=== PATIENT | female | born 1955 | race Caucasian/White ===

== ENCOUNTER 2018-05-09 07:51 | Emergency (ER) | payer BC, OTHER, MEDICARE ==
[2018-05-09] MEDS: HYDROcodone/APAP 5/325MG 1 TAB TABLET PO (08:26)
[2018-05-09] MEDS: ONDANSETRON ODT 4 MG TAB.RAPDIS. PO (08:27)
== END 2018-05-09 09:31 | disposition home or self-care (01) ==
LOC: ER 07:51
DX: S62.102A Fracture of unspecified carpal bone, left wrist, initial encounter for closed fracture (principal); E78.00 Pure hypercholesterolemia, unspecified; I10 Essential (primary) hypertension; E03.9 Hypothyroidism, unspecified; E11.9 Type 2 diabetes mellitus without complications; F41.9 Anxiety disorder, unspecified; Z88.2 Allergy status to sulfonamides; Z88.8 Allergy status to other drugs, medicaments and biological substances; W01.0XXA Fall on same level from slipping, tripping and stumbling without subsequent striking against object, initial encounter; Y93.89 Activity, other specified; Y92.89 Other specified places as the place of occurrence of the external cause; Y99.8 Other external cause status
CPT/HCPCS: 29125; 73080; 73110; 73130; 99284; Q0162

== ENCOUNTER → 2019-02-07 | Outpatient (CLI) | payer BC ==
[2018-05-09 09:31] VITALS: BP 138/69
[~2019-02-07] MED LIST: AMLO10TA8 PO; ASPI325T8 PO; FERR325T14 PO; HYDR-3164 PO; HYDR28GE TP; HYDR2TAB31 PO; LEVO175T5 PO; LEVO750T5 PO; LOSA-73 PO; LOVA20TA2 PO; METF10007 PO; METO100T7 PO; PARO20TA3 PO
--- NOTE | 2019-02-07 13:19 | RAD ---
Left lower extremity bone length study, 02/07/2019: HISTORY: Preop planning for knee surgery AP views of the left femur and lower leg were obtained with markers placed on the skin surface laterally as requested to aid in measurements for surgical planning. There is severe narrowing of the medial compartment of left knee joint with subchondral sclerosis and moderate marginal spurring. Arterial calcifications are present. No other abnormality is identified on this limited exam. Electronically signed by: Oscar Vallejo MD (02/07/2019 1:16 PM) [facility]
--- NOTE | 2019-02-07 14:30 | RAD ---
Examination: MRI left knee without contrast using Stoll & Nephew protocol HISTORY: Left knee pain COMPARISON: None available TECHNIQUE: MRI of the left knee was performed using identified. FINDINGS: The anterior cruciate ligament, posterior cruciate ligament appear intact. There is attenuated appearance of the body of the medial meniscus with blunting of the posterior horn of the medial meniscus probably degeneration. Evaluation is limited as only limited views of the knee was performed per stoll and nephew protocol. The medial and lateral retinaculum appear intact. Moderate knee joint effusion. Severe tricompartmental degenerative changes with moderate size osteophyte formation identified in the medial, lateral, patellofemoral compartments. Extensor mechanism is intact. Soft tissue edema identified anterior to the knee joint. IMPRESSION: 1. Severe tricompartmental degenerative changes. 2. Small knee joint effusion. Electronically signed by: Israel Jones MD (02/07/2019 2:27 PM) [id number]
== END | disposition home or self-care (01) ==
LOC: RAD 12:29
PROVIDERS: ATTEND Orthopaedic Surgery
DX: M17.12 Unilateral primary osteoarthritis, left knee (principal); M25.462 Effusion, left knee; M25.762 Osteophyte, left knee; I70.202 Unspecified atherosclerosis of native arteries of extremities, left leg
CPT/HCPCS: 73721; 77073

== ENCOUNTER → 2019-02-17 | Outpatient (CLI) | payer BC ==
[2018-05-09 09:31] VITALS: BP 138/69
[2019-02-17 09:30] LABS: BASO # 0.1 x10^3/uL (0.0-0.2); BASO % 1 % (0-3); EOS # 0.1 x10^3/uL (0.0-0.7); EOS % 2 % (0-3); HEMATOCRIT 36.8 % (36.0-47.0); HEMOGLOBIN 11.7 g/dL (12.0-15.5); LYMPH # 1.6 x10^3/uL (1.0-4.8); LYMPH % 27 % (24-48); MEAN CORPUSCULAR HEMOGLOBIN 26 pg (25-35); MEAN CORPUSCULAR HGB CONC 32 g/dL (31-37); MEAN CORPUSCULAR VOLUME 82 fL (79-100); MONO # 0.8 x10^3/uL (0.0-1.1); MONO % 14 % (0-9); NEUT # 3.2 x10^3uL (1.8-7.7); NEUT % 56 % (31-73); PLATELET COUNT 187 x10^3/uL (140-400); RED BLOOD COUNT 4.48 x10^6/uL (3.50-5.40); RED CELL DISTRIBUTION WIDTH 15.6 % (11.5-14.5); WHITE BLOOD COUNT 5.8 x10^3/uL (4.0-11.0)
[2019-02-17 09:35] LABS: PROTHROMBIN TIME PATIENT 12.9 SEC (11.7-14.0)
[2019-02-17 10:13] LABS: BILIRUBIN,URINE NEGATIVE (NEG); CLARITY,URINE CLEAR; COLOR,URINE YELLOW; NITRITE,URINE POSITIVE (NEG); PH,URINE 5.5; PROTEIN,URINE 30 mg/dL (NEG-TRACE); UROBILINOGEN,URINE 0.2 mg/dL (0.2 mg/dL)
[2019-02-17 10:19] LABS: BACTERIA,URINE MANY /HPF (0-FEW); SQUAMOUS EPITHELIAL CELL,UR MANY /LPF; WBC,URINE 20-40 /HPF (0-4)
[2019-02-17 10:20] LABS: RBC,URINE OCC /HPF (0-2)
[2019-02-17 10:26] LABS: ALBUMIN 3.8 g/dL (3.4-5.0); CALCIUM 9.3 mg/dL (8.5-10.1); CREATININE 0.8 mg/dL (0.6-1.0); GFR 72.2; POTASSIUM 4.6 mmol/L (3.5-5.1)
--- NOTE | 2019-02-17 13:17 | EKG ---
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
--- NOTE | 2019-02-17 14:39 | RAD ---
AP and Lateral Views of the Chest 02/17/2019 2:05 PM Indication: PRE-OP CHEST, KNEE SURGERY Comparison: Chest radiograph July 28, 2013 Findings: Calcified granuloma in the right lower lobe is stable. There is no focal consolidation or infiltrate identified. The cardiomediastinal silhouette is within normal limits. There is no evidence of pneumothorax or pleural effusion. No acute osseous abnormalities are identified. Impression: No evidence of acute cardiopulmonary process. Electronically signed by: Nathaniel Munoz MD (02/17/2019 2:36 PM) [facility]
[2019-02-17 23:08] LABS: HEMOGLOBIN A1C 6.6 % (4.8-5.6)
--- NOTE | 2019-02-21 10:18 | NUR ---
FAXED URINE CULTURE [place] [address]/21/2019 [place] [address]/21/2019AND [place] [address]/21/2019 AND ALSO LEFT A MESSAGE AT 09.
--- NOTE | 2019-03-06 18:27 | NUR ---
PATIENT WAS TREATED WITH MACROBID 100 MG.X 7 DAYS PCP - ANA MANZANARES APRN OFFICE CALLED PATIENT 2018. UA,C&S IF INDICATED REPEATED 03/04/2019 AND REPORT STILL ABNORMAL AND FAXED TO 'S OFFICE03/04/2019 AT 1058 AND ALSO CALLED JUDY EUCEDA 03/04/2019 AND HE IS GOING TO CHECK WITH . 03/06/2019 AT 1030 JUDY EUCEDA OF CALLED HE WILL CALL PATIENT TODAY AND SAID SURGEON WANTS TO REPEAT UA DAY OF SURGERY.
--- NOTE | 2019-03-07 13:29 | NUR ---
PATIENT IS TO START TAKING LEVOFLOXACIN 500 MG. DAILY UNTIL SURGERY PER AND OK KIM CALLED PATIENT 03/07/2019 OK CALLED AT AROUND 0830.
== END | disposition home or self-care (01) ==
LOC: SURGPAT 13:59
PROVIDERS: ATTEND Orthopaedic Surgery
DX: M17.12 Unilateral primary osteoarthritis, left knee (principal); I10 Essential (primary) hypertension; J84.10 Pulmonary fibrosis, unspecified; Z88.8 Allergy status to other drugs, medicaments and biological substances
CPT/HCPCS: 36415; 71046; 80048; 81001; 82040; 82306; 83036; 84134; 84466; 85025; 85610; 85730; 87086; 87186; 87641; 93005

== ENCOUNTER → 2019-03-04 | Outpatient (CLI) | payer BC ==
[2018-05-09 09:31] VITALS: BP 138/69
[2019-03-04 09:29] LABS: BILIRUBIN,URINE NEGATIVE (NEG); CLARITY,URINE CLEAR; COLOR,URINE YELLOW; NITRITE,URINE POSITIVE (NEG); PH,URINE 5.5; PROTEIN,URINE NEGATIVE (NEG-TRACE); UROBILINOGEN,URINE 0.2 mg/dL (0.2 mg/dL)
[2019-03-04 09:38] LABS: WBC,URINE 20-40 /HPF (0-4)
[2019-03-04 09:39] LABS: BACTERIA,URINE MANY /HPF (0-FEW); SQUAMOUS EPITHELIAL CELL,UR FEW /LPF
== END | disposition home or self-care (01) ==
LOC: LAB 08:48
PROVIDERS: ATTEND Orthopaedic Surgery
DX: N39.0 Urinary tract infection, site not specified (principal)
CPT/HCPCS: 81001; 87086; 87186

== ENCOUNTER 2019-03-11 06:40 | Inpatient (IN) | payer BC ==
--- NOTE | 2019-03-10 17:57 | PDOC1 ---
History and Physical Date of Admission Date of Admission 03/11/2019 Identification/Chief Complaint Chief Complaint left knee pain Source Source: Chart review History of Present Illness History of Present Illness 63-year-old woman with long-standing knee arthritis. The left knee interferes with her day-to-day activity, at times causes her to cry in pain. She takes N SAIDs, Etodolac for arthritis pain, but it's not working well enough. Her twin sister has had both knees replaced, when the twin was still in her 50s. Caio has held out longer but feels that she needs to have this left knee replaced because of the severe interference with her day-to-day activities. She has some other issues which will affect knee replacement surgery. She has a history of gastric bypass surgery x2, and had complications. She had hernia surgery first without mesh, and another hernia surgery with mesh. She had heel bone surgery which became infected. She does have some neuropathy, some loss of sensation in the feet, and some itching in the feet. She has multiple allergies. She denies a nickel or metal allergy. Her PCP is Caio Benjamin, and she sees her every 6 months. Recent A1c was 6.2. She denies any prior left knee surgery. The right knee bothers her but not as much as the left. 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 Past Medical History Past Medical History Hypertension. Hyperlipidemia. Diabetes Mellitus type 2. Hypothyroidism. Anxiety. Cardiovascular: HTN, Hyperlipidemia Psych: Anxiety Endocrine: Diabetes, Hypothyroidism Past Surgical History Past Surgical History Hernia Repair by Dr. Beal Gastric Bypass 1978 Bone spur removal from right foot broke wrist april 2018 Past Surgical History: Hernia Repair Current Medications Current Medications Current Medications Ondansetron HCl (Zofran) 4 mg PRN Q6HRS PRN IV NAUSEA/VOMITING; Start 03/11/19 at 07:00; Stop 03/12/19 at 06:59 Fentanyl Citrate (Fentanyl 2ml Vial) 25 mcg PRN Q5MIN PRN IV MILD PAIN; Start 03/11/19 at 07:00; Stop 03/12/19 at 06:59 Fentanyl Citrate (Fentanyl 2ml Vial) 50 mcg PRN Q5MIN PRN IV MODERATE TO SEVERE PAIN; Start 03/11/19 at 07:00; Stop 03/12/19 at 06:59 Ringer's Solution 1,000 ml @ 30 mls/hr Q24H IV ; Start 03/11/19 at 07:00; Stop 03/11/19 at 18:59 Lidocaine HCl (Xylocaine-Mpf 1% 2ml Vial) 2 ml PRN 1X PRN ID IV START; Start 03/11/19 at 07:00; Stop 03/12/19 at 06:59 Prochlorperazine Edisylate (Compazine) 5 mg PACU PRN PRN IV NAUSEA, MRX1; Start 03/11/19 at 07:00; Stop 03/12/19 at 06:59 Morphine Sulfate 5 mg/Ketorolac Tromethamine 30 mg/Ropivacaine 60 ml/Epinephrine HCl 0.5 mg/Sodium Chloride 100 ml @ 100 mls/hr 1X ONCE INT ART ; Start 03/11/19 at 06:00; Stop 03/11/19 at 06:59 Active Scripts Active [place] 5-325 Tablet (Acetaminophen/Hydrocodone Bitart) 1 Each Tablet 1 Tab PO BID 4 Days Reported Losartan Potassium 50 Mg Tablet 50 Mg PO DAILY Metoprolol Tartrate 100 Mg Tablet 100 Mg PO BID Lovastatin 20 Mg Tablet 20 Mg PO HS Levothyroxine Sodium 175 Mcg Tablet 175 Mcg PO DAILYAC Paroxetine Hcl 20 Mg Tablet 20 Mg PO DAILY Amlodipine Besylate 10 Mg Tablet 10 Mg PO DAILY Metformin Hcl 1,000 Mg Tablet 1,000 Mg PO BIDWMEALS Aspirin 325 Mg Tablet 325 Mg PO BID Ferrous Sulfate 325 Mg Tablet 325 Mg PO DAILY Cortizone 10 (Hydrocortisone) 28 Gm Gel..gram. 28 Gm TP PRN DAILY PRN Allergies Allergies: Coded Allergies: ANA Inhibitors (Verified Allergy, Severe, SWELLING, 05/09/18) Sulfa (Sulfonamide Antibiotics) (Verified Allergy, Intermediate, RASH, 05/09/18) hydrocodone (Verified Adverse Reaction, Intermediate, Itching, 02/19/19) ROS Review of System CONSTITUTIONAL: Fever denies. Chills denies. Weight gain denies. Weakness none. weight loss denies. Fatigue none. OPHTHALMOLOGY: Blurred vision none. Double vision denies. Change in vision none. ENT: Hearing loss none. Change in voice denies. Rhinorrhea none. CARDIOLOGY: Palpitations none. Shortness of breath denies. Chest pain denies. GASTROENTEROLOGY: Diarrhea denies. Vomiting none. Dysphagia none. UROLOGY: Voiding normally yes. Hematuria none. MUSCULOSKELETAL: Chronic back or neck pain Right. Swelling of the feet, hands, ankles and /or legs denies. Joint pain Left wrist fracture, recently healed. She has developed popping at the left thumb interphalangeal joint, since the fracture. DERMATOLOGY: Rash denies. Lumps none. NEUROLOGY: Dizziness/lightheadedness denies. Double vision, temporary blindness denies. Tingling/numbness none. PSYCHOLOGY: Change in mood or personality denies. Memory loss none. ENDOCRINOLOGY: Obesity denies. Fatigue none. Weight loss none. HEMATOLOGY/LYMPH: Hepatitis denies. Enlarged lymph nodes denies. Physical Exam General: Alert, Cooperative HEENT: Atraumatic Lungs: Normal air movement Heart: RRR Abdomen: Soft Extremities: No clubbing, No cyanosis, No edema, Other (The LEFT knee shows a mildly antalgic gait. There is varus alignment. No masses. No detectable effusion. Tenderness on the joint lines. Range of motion is 5-115 degrees. There is crepitus with range of motion, and pain at the extremes of motion. The knee is stable to varus and valgus stress without subluxation or laxity. Muscle strength is slightly weak for the quadriceps 4+/5 which may be due to pain or avoidance, and does not seem neurogenic, and the muscle tone and bulk is slightly decreased. The hamstring strength is 5/5. The skin is normal with no scars, rashes, lesions or ulcers. Light touch sensation is slightly decreased. No edema and no varicosities. Dorsalis pedis pulse is intact and capillary refill is normal. ) Skin: No rashes, No breakdown, No significant lesion Neuro: Normal speech, Sensation intact Images Images Report reviewed, images independently reviewed. Severe osteoarthritis of the left knee with tibiofemoral subluxation, multiple compartment osteophytes, [id number] contact medially, varus malalignment. [facility] [address] [place], [place] [id number] IMAGING REPORT Signed PATIENT: CAIO SHAFER ACCOUNT: [id number] : 1955 LOCATION: [facility] AGE: 63 SEX: F EXAM STATUS: REG CLI ORD. PHYSICIAN: ARMANDO GUTIERREZ MD REASON: PROCEDURE: KNEE LEFT 3V AP view of bilateral knees, 2 additional views left knee 01/30/2019 9:07 AM Indication: left knee pain for a long time, no known injury Comparison: None Findings: Right knee demonstrates no fracture or dislocation. Minimal medial compartment narrowing appears be present on frontal view. No fracture or dislocation is identified on the left. There is severe medial compartment narrowing with medial and lateral compartmental osteophytosis. The lateral patellofemoral joint also demonstrates significant osteophytosis. Minimal medial translation of the femur aspect of the tibia noted. No acute soft tissue changes are seen. IMPRESSION: Severe degenerative changes of the left knee as described Electronically signed by: Nathaniel Denson MD (01/30/2019 11:26 AM) [facility] DICTATED and SIGNED BY: NATHANIEL DENSON MD DATE: 01/30/191125 VTE Prophylaxis Ordered VTE Prophylaxis Devices: Yes VTE Pharmacological Prophylaxi: Yes Assessment/Plan Assessment/Plan She has severe osteoarthritis of the left knee with [id number]-[id number] contact. She has had weight loss surgery and lost weight, and has tried NSAIDs for the knee arthritis pain. The pain interferes with her activity on a day-to-day basis. Her BMI is 38.8. At 63 years old, and with rhuh-vh-nqwn arthritis medially, the only surgery I would recommend is knee replacement surgery. Unfortunately she is higher risk than the average patient, due to the malabsorption syndrome, and there is evidence of her risk of complications, since she has had multiple prior surgical complications. She had the heel surgery which became infected. She had hernia surgery which failed. She had complications with gastric bypass surgery. We discussed the potential risks of infection, neurovascular injury, bleeding, blood clots, need for revision surgery, or other potential surgical or anesthetic complications. I will want to check her nutrition status preoperatively and I recommended she begin taking Glucerna daily immediately. She does not have any nickel sensitivity but does have multiple other allergies. I recommend the [employer] patient-matched cutting blocks which should decrease the surgical exposure, decrease the bleeding, shorten the surgical time, all of which will help decrease the risk of infection or other postoperative complications. we will request medical clearance from her primary care physician Caio Benjamin. All of her questions about left total knee arthroplasty were answered and she desires to proceed. ARMANDO GUTIERREZ MD Mar 10, 2019 17:57
[2019-03-11] VITALS (8 sets, daily range): BP systolic 96–136; BP diastolic 57–71
[~2019-03-11] VITALS: Ht 157.5 cm; Wt 96.2 kg
[~2019-03-11 06:40] MED LIST changes: -HYDR2TAB31 PO; +HYDROcodone/APAP 7.5/325MG 1 TAB TABLET PO PRN; -LEVO750T5 PO; +MELOXICAM 7.5 MG TABLET PO PRN; +MORPHINE SULFATE 5 MG, KETOROLAC 30MG VIAL 30 MG, ROPIVacaine 0.5% PF 60 ML, EPINEPHrin... INT ART ONE; +TRANEXAMIC ACID 1,000 MG in IV NS 50ML -- 1ST BAG INJ ONE
[2019-03-11] MEDS ORDERED: fentaNYL PF VIAL 100 MCG/2 ML VIAL IV PRN ×3 (07:00→12:15)
[2019-03-11] MEDS ORDERED: LIDOCAINE 1% PF 2 ML VIAL. ID PRN (07:00)
[2019-03-11] MEDS ORDERED: PROCHLORPERAZINE 10 MG/2 ML VIAL. IV PRN (07:00)
[2019-03-11] MEDS ORDERED: ONDANSETRON PF 4 MG/2 ML VIAL. IV PRN (07:00)
[2019-03-11] MEDS ORDERED: IV RINGERS,LACTATED 1000ML 1,000 ML IV SCH (07:00)
[2019-03-11 07:15] LABS: BILIRUBIN,URINE NEGATIVE (NEG); CLARITY,URINE CLEAR; COLOR,URINE YELLOW; NITRITE,URINE NEGATIVE (NEG); PH,URINE 5.5; PROTEIN,URINE 30 mg/dL (NEG-TRACE); UROBILINOGEN,URINE 0.2 mg/dL (0.2 mg/dL)
[2019-03-11 07:24] LABS: SQUAMOUS EPITHELIAL CELL,UR MOD /LPF
[2019-03-11 07:28] LABS: BACTERIA,URINE FEW /HPF (0-FEW)
[2019-03-11 07:29] LABS: RBC,URINE 0 /HPF (0-2)
[2019-03-11] MEDS ORDERED: ACETAMINOPHEN 500 MG TABLET PO ONE (07:30)
[2019-03-11] MEDS ORDERED: TOBRAMYCIN POWDER 1.2 GM VIAL. ONE (07:30)
[2019-03-11] MEDS ORDERED: VANCOMYCIN 1 GM VIAL. ONE ×3 (07:30→08:55)
[2019-03-11] MEDS ORDERED: LEVO750T5 PO (07:32)
[2019-03-11] MEDS ORDERED: cefTRIAXone IV Push 1 GM VIAL. IVP PRN (07:45)
[2019-03-11] MEDS ORDERED: TRANEXAMIC ACID 1,000 MG in IV NS 50ML -- 2ND BAG INJ ONE (08:00)
[2019-03-11] MEDS ORDERED: cefTRIAXone IV Push 1 GM VIAL. IVP ONE (08:00)
[2019-03-11] MEDS ORDERED: PROPOFOL 20 ML IV ONE (09:19)
[2019-03-11] MEDS ORDERED: LIDOCAINE 2% PF 5 ML VIAL. ONE (09:19)
[2019-03-11] MEDS ORDERED: DEXAMETHASONE SOD PHOS 20 MG/5 ML VIAL. ONE (09:19)
[2019-03-11] MEDS ORDERED: DEXAMETHASONE SOD PHOS 4 MG/ML VIAL ONE (09:20)
[2019-03-11] MEDS ORDERED: ONDANSETRON PF 4 MG/2 ML VIAL. ONE (10:06)
[2019-03-11] MEDS ORDERED: fentaNYL PF VIAL 100 MCG/2 ML VIAL ONE (10:06)
[2019-03-11] MEDS ORDERED: ePHEDrine PF IN SALINE 50 MG/10 ML SYRINGE. IV ONE (10:10)
[2019-03-11] MEDS ORDERED: GLYCOPYRROLATE 1 MG/5 ML VIAL. ONE (10:26)
[2019-03-11] MEDS ORDERED: SEVOFLURANE 61 TO 120 MINUTES. IH ONE (11:35)
[2019-03-11] MEDS ORDERED: IV NORMAL SALINE 1000ML BAG 1,000 ML IV SCH (12:11)
--- NOTE | 2019-03-11 12:11 | PDOC4 ---
Operative Note Operative Note Date of Procedure: March 11, 2019 Pre-Op Diagnosis: Unilateral primary osteoarthritis, left knee. M17.12 Post-Op Diagnosis: same Procedure: left total knee arthroplasty with patella resurfacing, CPT 33875 Surgeon: Armando Farias MD Plastic Shaper: IGNACIO Mcneill Anesthesia: General EBL: 100 mL Specimens Obtained: left knee bone and soft tissue Complications: none Implant Company: [employer] Drains: hemovac plus pain catheter Tourniquet time: 53 Minutes Tourniquet Pressure: 350 mm Hg Indications for Procedure: Arthritis pain unrelieved by nonoperative management Findings: Severe osteoarthritis with bone on bone contact medially with full thickness cartilage loss in the patellofemoral and lateral compartments.Aura XM preoperative templating and patient-matched cutting blocks were used. Implants used: Size 5 left bicruciate stabilized Journey II BCS Oxinium femoral component, size 4 left Journey nonporous tibial baseplate, size 3-4 9 mm left Journey II BCS XLPE articular insert, 32 mm oval Karen II resurfacing patellar component. Canchola and Nephew Rally cement to which was added Vancomycin 1 gm and Tobramycin 1.2 gms. Vancomycin additional 1 gm was used topically intr a-wound during closure. Procedure in Detail: The patient was identified in the preoperative holding area, and the correct left lower extremity was marked by me. The patient was taken to the operating room where the patient was anesthetized by the Department of Anesthesia. Preoperative antibiotics were given intravenously. Tranexamic acid 1 g was given intravenously for intraoperative hemostasis. A "time-out" procedure was performed. The patient was positioned supine on the operative table with a tourniquet on the upper left thigh. The left lower limb was thoroughly scrubbed, then sterile surgical prep solution was applied, and the limb was draped in sterile fashion. An impervious stockinet and adhesive drape were used such that the skin was entirely covered. An Parker leg disla was used. The operating team wore personal exhaust-ventilated hoods. The limb exsanguinated with an Esmarch bandage, and the tourniquet was inflated. A midline skin incision was made with a scalpel using the patella and tibial tubercle as landmarks. Electrocautery was used for hemostasis. My patient services assistant used rake retractors. A medial parapatellar arthrotomy incision was used with extension into the distal quadriceps tendon. The patella was retracted laterally and Hohmann retractors were now used by my patient services assistant. Excess synovium, the menisci, and the cruciate ligaments were resected sharply. The patella was assessed and excess synovium and osteophytes around the patellar articulation were removed. The patella was measured with a caliper, cut freehand with a saw using caliper measurements, sized, and then drilled for an oval three-pegged patella component. A periarticular multimodal ropivacaine anesthetic injection was used in the suprapatellar pouch and distal quadriceps muscle. A patient-matched cutting block was pinned to the distal femur and a distal femoral cut was made with an oscillating saw. My patient services assistant held Hohmann retractors and an [employer] retractor to protect the medial and lateral collateral ligaments, the patellar tendon, the skin and the other soft tissues. . A 5-in-1 Journey II cutting guide was then applied and pinned to the femur. The posterior, anterior, and all chamfer cuts were made with the oscillating saw. A patient matched cutting guide was pinned to the tibia and rotational alignment and the planned resection thickness assessed. An external alignment suzi was used to verify the planned cut in the varus-valgus plane and regarding posterior slope referencing the tibial tubercle, the tibial shaft, the ankle joint, and the second metatarsal. The upper tibia was cut made with an oscillating saw. My patient services assistant held Hohmann retractors and a posterior cruciate ligament retractor to protect the medial and lateral collateral ligaments, the patellar tendon, the skin, the peroneal nerve and the other soft tissues. The upper tibia size was confirmed with a trial baseplate. The posterior compartment was cleared of osteophytes and loose bodies. The periarticular anesthetic injection was used in the posterior compartment. The box cut for a posterior stabilized component was made. A preliminary reduction was performed with a trial femur, trial tibial baseplate and trial polyethylene. Soft-tissue balancing was now performed, and extension and rotation of the alignments was checked using a guide suzi in the tibial trial and a guide pin in the femur. No additional releases were required. The stability was assessed using different thicknesses of tibial articular surface to find satisfactory stability and good range of motion. The rotation of the tibial component was marked on the upper tibia. Final trial reduction was now performed verifying patella tracking and tibiofemoral stability and alignment. The tibia preparation was completed with a drill, saw, and fin punch at the previously noted rotation. The final implants were verified and opened. Outer gloves were changed by the operating team. The bone cuts were washed thoroughly with the Cain InterPulse device and dried. Two packages of Canchola + Nephew Rally HV bone cement were mixed in powdered form with Vancomycin 1gm and Tobramycin 1.2 gm, and then vacuum-mixed with the monomer, and placed into a cement gun. The cut surfaces of the bone were thoroughly dried with Whitfield-tip suction and with laparotomy sponges for cement interdigitation. The final components were cemented into place. The knee was kept at full extension while the cement hardened, and excess cement was removed. A Betadine lavage was used throughout the surgical exposure, and allowed to sit in contact with the exposed joint surfaces for three minutes while the cement hardened. Tranexamic acid 1 g was redosed intravenously for additional intraoperative hemostasis. The tourniquet was released, and electrocautery was used for hemostasis. A final periarticular anesthetic injection was used for pain relief. A final check of [id number]-[id number] and stability was made, and the polyethylene implant final size was chosen. The polyethylene implant was secured to the tibial baseplate, and the knee was reduced a final time and range of motion and stability was confirmed. Thorough irrigation was used. Hemovac and pain catheter were used. 1 g of vancomycin was used topically intrawound, during closure. The arthrotomy was closed with interrupted [id number]-cv-[id number] #1 PDS suture. The arthrotomy incision was then run with #1 STRATAFIX Symmetric PDS Plus Knotless suture. The subcutaneous tissues were reapproximated initially with 2-0 PDS . Next the subcuticular layer was reapproximated in a running fashion with #3-0 Stratafix suture by my patient services assistant. The skin incision was then covered and reinforced with Acticoat, followed by a ASHLEY single use negative pressure wound therapy dressing Soft roll and an Diogo wrap were applied. Needle and sponge counts were correct. There were no apparent complications. The patient returned to the recovery room in stable condition. ARMANDO FARIAS MD Mar 11, 2019 12:11
[2019-03-11] MEDS ORDERED: DEXTROSE 50% 25 GM / 50ML DISP.SYRIN. IV PRN (12:15)
[2019-03-11] MEDS ORDERED: 0.9 % SODIUM CHLORIDE 10 ML DISP.SYRIN. IV PRN (12:15)
[2019-03-11] MEDS ORDERED: CALCIUM CARBONATE 500 MG TAB.CHEW PO PRN (12:15)
[2019-03-11] MEDS ORDERED: METOCLOPRAMIDE HCL 10 MG/2 ML VIAL. IV PRN (12:15)
[2019-03-11] MEDS ORDERED: MORPHINE SULFATE 4 MG/ML VIAL. IV PRN (12:15)
[2019-03-11] MEDS ORDERED: ZOLPIDEM 5 MG TABLET. PO PRN (12:15)
[2019-03-11] MEDS ORDERED: MORPHINE SULFATE 2 MG/ML VIAL. IV PRN (12:15)
[2019-03-11] MEDS ORDERED: diphenhydrAMINE 50 MG/ML VIAL IV PRN (12:15)
[2019-03-11] MEDS ORDERED: PROCHLORPERAZINE 5 MG TABLET. PO PRN (12:15)
--- NOTE | 2019-03-11 13:04 | RAD ---
EXAM: Left knee, 2 views. HISTORY: Arthroplasty. COMPARISON: None. FINDINGS: 2 views left knee are obtained. There is a left knee arthroplasty. There is surrounding soft tissue gas, joint fluid and a surgical drain due to postoperative imaging. IMPRESSION: Left knee arthroplasty, with surrounding soft tissue changes due to recent surgery. Electronically signed by: Aviva Briones MD (03/11/2019 1:01 PM) [facility]
[2019-03-11] MEDS: fentaNYL PF VIAL 100 MCG/2 ML VIAL IV PRN ×2 (13:21→13:26)
[2019-03-11] MEDS ORDERED: INSULIN LISPRO 100 UNIT/ML 3ML VIAL. SQ ONE (14:00)
--- NOTE | 2019-03-11 14:40 | NUR ---
Arrived to unit by bed from PACU. Drowsy but awakens easily and answers questions appropriately. Left leg elevated on pillow with ice pack. Left knee dressing d/i with ASHLEY, IAC and Hemovac drain. Able to wiggle toes easily, warm to touch and pedal pulses + bilaterally. O2 at 2l per n/c. IVF's intact and infusing. No c/o at this time. Oriented to room and controls. Side rails up x's 2 with call light in reach. Cont. monitor.
[2019-03-11] MEDS ORDERED: HYDROCORTISONE 1% TOPICAL CREAM 30GM TUBE. TP PRN (15:00)
[2019-03-11] MEDS: FERROUS SULFATE 325 MG TABLET. PO SCH (17:08)
[2019-03-11] MEDS: metFORMIN 500 MG TABLET PO SCH (17:08)
[2019-03-11] MEDS: oxyCODONE/APAP 5/325 1 TAB TABLET PO PRN ×2 (17:09→23:09)
[2019-03-11] MEDS: INSULIN LISPRO 300 UNITS/3 ML INSULN.PEN. SQ SCH (17:17)
[2019-03-11] MEDS: KETOROLAC 30MG VIAL 30 MG, BUPIVACAINE MPF 0.25% 20 ML, EPINEPHrine 0.5 MG in TOTAL VOL... INT ART SCH (17:18)
[2019-03-11] MEDS: ONDANSETRON PF 4 MG/2 ML VIAL. IV SCH (18:00)
[2019-03-11] MEDS: ONDANSETRON ODT 4 MG TAB.RAPDIS. PO SCH (18:00)
[2019-03-11] MEDS ORDERED: diphenhydrAMINE HCL 25 MG CAPSULE PO PRN ×2 (18:15→20:15)
--- NOTE | 2019-03-11 20:30 | NUR ---
pt stated when she sit down on the bed she bend her left knee abruptly and she accidentally disconnect the IAC catheter tubing from the IAC filter catheter ,tubing that are exposed covered with sterile dressing and tape it
[2019-03-11] MEDS: ATORVASTATIN CALCIUM 10 MG TABLET. PO SCH (21:13)
[2019-03-11] MEDS: diphenhydrAMINE HCL 25 MG CAPSULE PO PRN (21:13)
[2019-03-11] MEDS: ASPIRIN ENTERIC COATED 325 MG TABLET.DR. PO SCH (21:13)
[2019-03-11] MEDS: METOPROLOL TART IMMED RELEASE 50 MG TABLET. PO SCH (23:08)
[2019-03-12 03:00] VITALS: BP 104/60
[2019-03-12] MEDS: oxyCODONE/APAP 5/325 1 TAB TABLET PO PRN (04:53)
[2019-03-12] MEDS: ONDANSETRON ODT 4 MG TAB.RAPDIS. PO SCH ×3 (06:00→12:00)
[2019-03-12] MEDS: KETOROLAC 30MG VIAL 30 MG, BUPIVACAINE MPF 0.25% 20 ML, EPINEPHrine 0.5 MG in TOTAL VOL... INT ART SCH (06:00)
[2019-03-12] MEDS ORDERED: MAGNESIUM HYDROXIDE 2,400 MG/30 ML ORAL.SUSP. PO PRN (06:00)
[2019-03-12] MEDS: ONDANSETRON PF 4 MG/2 ML VIAL. IV SCH ×3 (06:00→11:59)
[2019-03-12] MEDS: diphenhydrAMINE HCL 25 MG CAPSULE PO PRN (06:28)
[2019-03-12 06:46] VITALS: BP 96/52
[2019-03-12] MEDS: INSULIN LISPRO 300 UNITS/3 ML INSULN.PEN. SQ SCH ×3 (07:26→16:47)
--- NOTE | 2019-03-12 07:45 | PDOC ---
ORTHO PROGRESS NOTES Subjective Patient doing well except for itching.Patient has history of itching with Hydrocodone, and now complaint of itching. Post-op Day: 1 Procedure L TKA Vitals Vital Signs Date Time Temp Pulse Resp B/P (MAP) Pulse Ox O2 Delivery O2 Flow Rate FiO2 03/12/19 06:46 98.2 18 18 96/52 (67) 98 Nasal Cannula 2.0 98.2 Labs Laboratory Tests Test 03/11/19 07:02 03/11/19 07:25 03/11/19 07:51 03/11/19 12:40 Urine Collection Type Unknown Urine Color Yellow Urine Clarity Clear Urine pH 5.5 Urine Specific [place] 1.020 Urine Protein 30 mg/dL (NEG-TRACE) Urine Glucose (UA) Negative mg/dL (NEG) Urine Ketones (Stick) Negative mg/dL (NEG) Urine Blood Negative (NEG) Urine Nitrite Negative (NEG) Urine Bilirubin Negative (NEG) Urine Urobilinogen Dipstick 0.2 mg/dL (0.2 mg/dL) Urine Leukocyte Esterase Small (NEG) Urine RBC 0 /HPF (0-2) Urine WBC 5-10 /HPF (0-4) Urine Squamous Epithelial Cells Mod /LPF Urine Bacteria Few /HPF (0-FEW) Urine Mucus Slight /LPF Erythrocyte Sedimentation Rate 23 (0-25) Glucose (Fingerstick) 148 mg/dL (70-99) 227 mg/dL (70-99) Test 03/11/19 16:36 03/11/19 21:04 03/12/19 06:31 Glucose (Fingerstick) 173 mg/dL (70-99) 142 mg/dL (70-99) 124 mg/dL (70-99) Laboratory Tests Test 03/11/19 07:51 03/11/19 12:40 03/11/19 16:36 03/11/19 21:04 Glucose (Fingerstick) 148 mg/dL (70-99) 227 mg/dL (70-99) 173 mg/dL (70-99) 142 mg/dL (70-99) Test 03/12/19 06:31 Glucose (Fingerstick) 124 mg/dL (70-99) Notes awake and alert Assessment and Plan POD # 1 S/P l TKA motor and sensory intact dressing dry and intact itching concern this morning PT ROBERTA WISE APRN March 12, 2019 07:45
[2019-03-12] MEDS: FERROUS SULFATE 325 MG TABLET. PO SCH ×2 (08:48→16:06)
[2019-03-12] MEDS: MELOXICAM 7.5 MG TABLET PO SCH (08:49)
[2019-03-12] MEDS: MULTIVITAMIN with MINERAL TABLET. PO SCH (08:49)
[2019-03-12] MEDS: metFORMIN 500 MG TABLET PO SCH ×2 (08:49→16:06)
[2019-03-12] MEDS: SENNOSIDES/DOCUSATE 8.6/50MG TABLET. PO SCH (08:49)
[2019-03-12] MEDS: amLODIPine BESYLATE 10 MG TABLET PO SCH (08:49)
[2019-03-12] MEDS: ASPIRIN ENTERIC COATED 325 MG TABLET.DR. PO SCH ×2 (08:49→21:00)
[2019-03-12] MEDS: METOPROLOL TART IMMED RELEASE 50 MG TABLET. PO SCH ×2 (08:51→21:01)
[2019-03-12] MEDS: LOSARTAN POTASSIUM 50 MG TABLET. PO SCH (08:51)
[2019-03-12] MEDS: LEVOTHYROXINE 175 MCG TABLET PO SCH (08:53)
[2019-03-12] MEDS: PARoxetine 20 MG TABLET PO SCH (08:53)
[2019-03-12 10:45] LABS: HEMATOCRIT 31.5 % (36.0-47.0); HEMOGLOBIN 9.9 g/dL (12.0-15.5)
[2019-03-12] MEDS: traMADol 50 MG TABLET PO PRN ×3 (11:59→23:07)
[2019-03-12] MEDS ORDERED: ONDANSETRON ODT 4 MG TAB.RAPDIS. PO PRN (12:00)
[2019-03-12] MEDS ORDERED: ONDANSETRON PF 4 MG/2 ML VIAL. IV PRN (12:00)
--- NOTE | 2019-03-12 13:20 | NUR ---
IAC and Hemovac completely discontinued around 1315. ASHLEY dressing with a moderate amount of old bloody drainage present but still working properly. Foam dressing applied over old IAC and Hemovac site. No complications from removal. Will continue to monitor.
[2019-03-12] MEDS ORDERED: BISACODYL 10 MG SUPP.RECT. PR PRN (16:00)
[2019-03-12] MEDS: HYDROmorphone 2 MG TABLET PO PRN ×2 (16:08→21:03)
[2019-03-12 17:47] VITALS: BP 94/55
[2019-03-12 20:45] VITALS: BP 105/53
[2019-03-12] MEDS: ATORVASTATIN CALCIUM 10 MG TABLET. PO SCH (21:00)
[2019-03-13] MEDS: HYDROmorphone 2 MG TABLET PO PRN ×3 (04:40→17:08)
[2019-03-13 05:22] LABS: HEMATOCRIT 32.3 % (36.0-47.0); HEMOGLOBIN 10.4 g/dL (12.0-15.5)
[2019-03-13 06:18] VITALS: BP 120/69
[2019-03-13] MEDS: ASPIRIN ENTERIC COATED 325 MG TABLET.DR. PO SCH ×2 (08:48→20:53)
[2019-03-13] MEDS: MELOXICAM 7.5 MG TABLET PO SCH (08:48)
[2019-03-13] MEDS: traMADol 50 MG TABLET PO PRN ×2 (08:49→20:55)
[2019-03-13] MEDS: metFORMIN 500 MG TABLET PO SCH ×2 (08:49→17:08)
[2019-03-13] MEDS: PARoxetine 20 MG TABLET PO SCH (08:49)
[2019-03-13] MEDS: MULTIVITAMIN with MINERAL TABLET. PO SCH (08:52)
[2019-03-13] MEDS: FERROUS SULFATE 325 MG TABLET. PO SCH ×2 (08:52→17:08)
[2019-03-13] MEDS: SENNOSIDES/DOCUSATE 8.6/50MG TABLET. PO SCH (08:52)
[2019-03-13] MEDS: LEVOTHYROXINE 175 MCG TABLET PO SCH (08:53)
[2019-03-13] MEDS: METOPROLOL TART IMMED RELEASE 50 MG TABLET. PO SCH ×2 (08:55→20:54)
[2019-03-13] MEDS: LOSARTAN POTASSIUM 50 MG TABLET. PO SCH (09:00)
[2019-03-13] MEDS: INSULIN LISPRO 300 UNITS/3 ML INSULN.PEN. SQ SCH ×3 (09:01→17:13)
[2019-03-13 11:30] VITALS: BP 106/66
[2019-03-13] MEDS: amLODIPine BESYLATE 10 MG TABLET PO SCH (12:46)
--- NOTE | 2019-03-13 13:18 | PDOC ---
PROGRESS NOTES Subjective Subjective Had trouble with pain meds. Lots of itching with Percocet (even after taking Benadryl.) Doing better on Dilaudid and Tramadol. Hasn't been up OOB much due to pain med issues. Objective Vital Signs Vital Signs Date Time Temp Pulse Resp B/P (MAP) Pulse Ox O2 Delivery O2 Flow Rate FiO2 03/13/19 12:46 77 130/66 03/13/19 11:30 98.5 20 95 Room Air 98.5 03/12/19 06:46 2.0 Physical Exam Postop dressing and pain catheter have been removed. Spotty bloody drainage only (and had postop bleeding requiring ASHLEY change). Calf soft and nontender. Good AROM of ankle. Minimal erythema/warmth. Not yet safely ambulating with walker. Requires PT or nursing assistance, and gait belt for safe transition from chair or bed to walker. Labs Laboratory Tests Test 03/11/19 16:36 03/11/19 21:04 03/12/19 06:31 03/12/19 08:35 Glucose (Fingerstick) 173 mg/dL (70-99) 142 mg/dL (70-99) 124 mg/dL (70-99) Hemoglobin 9.9 g/dL (12.0-15.5) Hematocrit 31.5 % (36.0-47.0) Mean Corpuscular Hemoglobin Concent 31 g/dL (31-37) Test 03/12/19 11:53 03/12/19 16:38 03/12/19 20:27 03/13/19 03:40 Glucose (Fingerstick) 113 mg/dL (70-99) 192 mg/dL (70-99) 126 mg/dL (70-99) Hemoglobin 10.4 g/dL (12.0-15.5) Hematocrit 32.3 % (36.0-47.0) Mean Corpuscular Hemoglobin Concent 32 g/dL (31-37) Test 03/13/19 06:28 03/13/19 11:39 Glucose (Fingerstick) 172 mg/dL (70-99) 145 mg/dL (70-99) Laboratory Tests Test 03/12/19 16:38 03/12/19 20:27 03/13/19 03:40 03/13/19 06:28 Glucose (Fingerstick) 192 mg/dL (70-99) 126 mg/dL (70-99) 172 mg/dL (70-99) Hemoglobin 10.4 g/dL (12.0-15.5) Hematocrit 32.3 % (36.0-47.0) Mean Corpuscular Hemoglobin Concent 32 g/dL (31-37) Test 03/13/19 11:39 Glucose (Fingerstick) 145 mg/dL (70-99) Imaging Postoperative x-rays and report reviewed by me and show satisfactory alignment and no apparent complications. Assessment Assessment POD #2 TKA Plan Plan of Care Continue POC. Discharge planning for tomorrow. Aspirin 325 mg po BID and mobilization for DVT prophylaxis. ARMANDO GUTIERREZ MD March 13, 2019 13:18
--- NOTE | 2019-03-13 14:41 | PATHOLOGY ---
[facility] Accession Number: [id number] . 01 Material submitted: . knee - LEFT KNEE BONE AND SOFT TISSUE. Modifiers: left . 01 Clinical history: . Osteoarthritis . 02 Diagnosis: Segments of bone and soft tissue, left total knee arthroplasty: - Advanced degenerative arthritis. - Papillary chronic synovitis. ([facility] 03/13/2019) QTP/03/13/2019 . 02 Electronically signed: . Phuc Medrano MD, Pathologist NPI- [id number] . 01 Gross description: . Received in formalin labeled "Esme Moser, left knee bone and soft tissue ", are multiple segments of bone including apparent tibia plateau, patella, two irregular fragments of meniscus and soft tissue measuring 12.5 x 8.0 x 1.5 cm in aggregate. Several bone segments are partially covered by pitted thomas and granular articular cartilage with areas of eburnation. Osteophyte and hyperplastic synovial tissue are present. Shoe Cutter sections submitted in A1 after decalcification. ([facility]; 03/12/2019) [facility] . 02 Pathologist provided ICD-10: M17.12, M65.9 . 02 CPT . 790266, 970340 Specimen Comment: A courtesy copy of this report has been sent to Specimen Comment: [phone]. Specimen Comment: Report sent to Performed at: 01 [facility] [address], [place] [id number] MD Barry Bernard MD Phone: [phone] Performed at: 02 [facility] [address] [place], [place] [id number] MD Phuc Medrano MD Phone: [phone]
--- NOTE | 2019-03-13 15:46 | NUR ---
Esme is feeling better; better pain control with no increase in itching. tolerated both rehab sessions. still needs assistance with ambulation and transferring. ate lunch fair. ordered supper without problems
[2019-03-13 17:54] VITALS: BP 117/64
[2019-03-13] MEDS: ATORVASTATIN CALCIUM 10 MG TABLET. PO SCH (20:51)
[2019-03-14 06:25] VITALS: BP 133/65
[2019-03-14] MEDS: LEVOTHYROXINE 175 MCG TABLET PO SCH (06:36)
[2019-03-14] MEDS: INSULIN LISPRO 300 UNITS/3 ML INSULN.PEN. SQ SCH ×2 (07:29→12:00)
[2019-03-14 07:42] LABS: HEMOGLOBIN 9.4 g/dL (12.0-15.5)
--- NOTE | 2019-03-14 08:00 | NUR ---
awakens this am; tearful crying stating I want to go Home NOW" explained she could go home but would not have any pain medication. i would call charito and tell him but idid not know when he would be in. after letting her rest and awakens fully she is in a better mood and iss agreeable to staying.
[2019-03-14] MEDS: MELOXICAM 7.5 MG TABLET PO SCH (08:39)
[2019-03-14] MEDS: SENNOSIDES/DOCUSATE 8.6/50MG TABLET. PO SCH (08:40)
[2019-03-14] MEDS: MULTIVITAMIN with MINERAL TABLET. PO SCH (08:40)
[2019-03-14] MEDS: METOPROLOL TART IMMED RELEASE 50 MG TABLET. PO SCH (08:40)
[2019-03-14] MEDS: ASPIRIN ENTERIC COATED 325 MG TABLET.DR. PO SCH (08:40)
[2019-03-14] MEDS: FERROUS SULFATE 325 MG TABLET. PO SCH (08:40)
[2019-03-14] MEDS: amLODIPine BESYLATE 10 MG TABLET PO SCH (08:40)
[2019-03-14] MEDS: metFORMIN 500 MG TABLET PO SCH (08:40)
[2019-03-14] MEDS: PARoxetine 20 MG TABLET PO SCH (08:41)
[2019-03-14] MEDS: HYDROmorphone 2 MG TABLET PO PRN ×3 (08:45→15:17)
[2019-03-14] MEDS: LOSARTAN POTASSIUM 50 MG TABLET. PO SCH (09:00)
--- NOTE | 2019-03-14 10:30 | NUR ---
reviewed discharge instructions Esme regarding restrictions to activities such as bathing, driving walker incisional care and jovan dressing care, bathing ; verbalized understanding of these.
--- NOTE | 2019-03-14 11:53 | PDOC ---
PROGRESS NOTES Subjective Subjective No complaints. Planning on discharge today to home. Objective Vital Signs Vital Signs Date Time Temp Pulse Resp B/P (MAP) Pulse Ox O2 Delivery O2 Flow Rate FiO2 03/14/19 08:45 20 03/14/19 08:40 88 122/60 03/14/19 07:53 Room Air 03/14/19 06:25 97.9 94 97.9 03/12/19 06:46 2.0 Physical Exam ASHLEY intact and dry. Good AROM ankle. Calf soft and nontender. Minimal warmth or erythema. Labs Laboratory Tests Test 03/12/19 11:53 03/12/19 16:38 03/12/19 20:27 03/13/19 03:40 Glucose (Fingerstick) 113 mg/dL (70-99) 192 mg/dL (70-99) 126 mg/dL (70-99) Hemoglobin 10.4 g/dL (12.0-15.5) Hematocrit 32.3 % (36.0-47.0) Mean Corpuscular Hemoglobin Concent 32 g/dL (31-37) Test 03/13/19 06:28 03/13/19 11:39 03/13/19 16:30 03/13/19 21:50 Glucose (Fingerstick) 172 mg/dL (70-99) 145 mg/dL (70-99) 155 mg/dL (70-99) 154 mg/dL (70-99) Test 03/14/19 06:49 03/14/19 07:20 Glucose (Fingerstick) 117 mg/dL (70-99) Hemoglobin 9.4 g/dL (12.0-15.5) Hematocrit 29.0 % (36.0-47.0) Mean Corpuscular Hemoglobin Concent 32 g/dL (31-37) Laboratory Tests Test 03/13/19 16:30 03/13/19 21:50 03/14/19 06:49 03/14/19 07:20 Glucose (Fingerstick) 155 mg/dL (70-99) 154 mg/dL (70-99) 117 mg/dL (70-99) Hemoglobin 9.4 g/dL (12.0-15.5) Hematocrit 29.0 % (36.0-47.0) Mean Corpuscular Hemoglobin Concent 32 g/dL (31-37) Imaging POD #3 TKA Assessment Assessment Discharge planning for today with Home Health. Continue PT and DVT prophylaxis. F/U 10-14 days in office. ARMANDO GUTIERREZ MD March 14, 2019 11:53
[2019-03-14] MEDS ORDERED: HYDR2TAB31 PO (11:57)
--- NOTE | 2019-03-14 12:00 | PDOC3 ---
Discharge Summary Visit Information Date of Admission: Mar 11, 2019 Date of Discharge: March 14, 2019 Admitting Diagnosis: left knee osteoarthritis m17.12 Final Diagnosis left knee osteoarthritis M17.12 Brief Hospital Course Allergies Allergies Coded Allergies Type Severity Reaction Last Updated Verified ANA Inhibitors Allergy Severe SWELLING 03/11/19 Yes Sulfa (Sulfonamide Antibiotics) Allergy Intermediate RASH 03/11/19 Yes hydrocodone Adverse Reaction Intermediate Itching 03/11/19 Yes Vital Signs Vital Signs Date Time Temp Pulse Resp B/P (MAP) Pulse Ox O2 Delivery O2 Flow Rate FiO2 03/14/19 08:45 20 03/14/19 08:40 88 122/60 03/14/19 07:53 Room Air 03/14/19 06:25 97.9 94 97.9 Lab Results Laboratory Tests Test 03/12/19 16:38 03/12/19 20:27 03/13/19 03:40 03/13/19 06:28 Glucose (Fingerstick) 192 mg/dL (70-99) 126 mg/dL (70-99) 172 mg/dL (70-99) Hemoglobin 10.4 g/dL (12.0-15.5) Hematocrit 32.3 % (36.0-47.0) Mean Corpuscular Hemoglobin Concent 32 g/dL (31-37) Test 03/13/19 11:39 03/13/19 16:30 03/13/19 21:50 03/14/19 06:49 Glucose (Fingerstick) 145 mg/dL (70-99) 155 mg/dL (70-99) 154 mg/dL (70-99) 117 mg/dL (70-99) Test 03/14/19 07:20 Hemoglobin 9.4 g/dL (12.0-15.5) Hematocrit 29.0 % (36.0-47.0) Mean Corpuscular Hemoglobin Concent 32 g/dL (31-37) Laboratory Tests Test 03/13/19 16:30 03/13/19 21:50 03/14/19 06:49 03/14/19 07:20 Glucose (Fingerstick) 155 mg/dL (70-99) 154 mg/dL (70-99) 117 mg/dL (70-99) Hemoglobin 9.4 g/dL (12.0-15.5) Hematocrit 29.0 % (36.0-47.0) Mean Corpuscular Hemoglobin Concent 32 g/dL (31-37) Brief Hospital Course 63 year old who presented with knee osteoarthritis, for elective total knee arthroplasty. The patient underwent total knee arthroplasty under general anesthesia the day of admission. Perioperative antibiotics and DVT prophylaxis were used. Postoperatively physical therapy and case management were consulted. She had medication and bleeding complications the day after surgery, but improved with dressing change and medication change. The patient progressed and is stable for discharge. Discharge Information Condition at Discharge: Stable Follow Up: Weeks Disposition/Orders: D/C to Home w/ HH Scheduled Amlodipine Besylate (Amlodipine Besylate), 10 MG PO DAILY, (Reported) Aspirin (Aspirin), 325 MG PO BID, (Reported) Ferrous Sulfate (Ferrous Sulfate), 325 MG PO DAILY, (Reported) Levofloxacin (Levofloxacin), 1 TAB PO DAILY, (Reported) Levothyroxine Sodium (Levothyroxine Sodium), 175 MCG PO DAILYAC, (Reported) Losartan Potassium (Losartan Potassium), 50 MG PO DAILY, (Reported) Lovastatin (Lovastatin), 20 MG PO HS, (Reported) Metformin Hcl (Metformin Hcl), 1,000 MG PO BIDWMEALS, (Reported) Metoprolol Tartrate (Metoprolol Tartrate), 100 MG PO BID, (Reported) Paroxetine Hcl (Paroxetine Hcl), 20 MG PO DAILY, (Reported) Scheduled PRN Hydrocortisone (Cortizone 10), 28 GM TP PRN DAILY PRN for RASH, (Reported) Hydromorphone Hcl (Dilaudid), 2 MG PO PRN Q4HRS PRN for PAIN Patient Instructions Patient Instructions Patient Instructions Continue to WBAT with walker. Keep dressing dry and intact. F/U with Dr. Farias in 10-14 days. Call for appointment. Physical therapy for TKA with HH Continue DVT prophylaxis with aspirin BID for 30 days. ARMANDO FARIAS MD March 14, 2019 12:00
--- NOTE | 2019-03-14 12:08 | SNU/HH DC ---
DISCHARGE ORDERS DISCHARGE INFORMATION: DISCHARGE DATE: March 14, 2019 FINAL DIAGNOSIS left knee osteoarthritis aftercare after left total knee arthroplasty CONDITION ON DISCHARGE: Stable CODE STATUS: Code Status: Full FDC: SNF STAY <30 DAYS: Yes HOSPICE: HOSPICE: No HOSPICE EVAL & TREAT: No LTAC: ADMIT TO LTAC: No POST DISCHARGE ORDERS: ACTIVITY ORDERS: Activity as tolerated, Progressive ambulation WEIGHT BEARING STATUS: Full weight bearing, As tolerated DIET AFTER DISCHARGE: Regular WOUND/INCISION CARE: Ice to area for comfort, Keep wound/cast CDI, Do not change dressing, Other, see below OTHER WOUND INSTRUCTIONS: ASHLEY dressing, remove battery pack on day 7, leave dressing intact FOLLOW-UP: PHYSICIAN FOLLOW-UP: 10-[address] Farias, call [phone] for appointment if needed. ANTICOAGULATION F/U NEEDED: continue EC-ASA 325 mg po BID for 30 days. TREATMENT/EQUIPMENT ORDERS: ADAPTIVE EQUIPMENT NEEDED: Front wheeled walker Physical Therapy For: Evalulation/Treatment Occupational Therapy For: Evaluation/Treatment DISCHARGE MEDICATIONS: Home Meds Active Scripts Hydromorphone Hcl (DILAUDID) 2 Mg Tablet, 2 MG PO PRN Q4HRS PRN for PAIN for 14 Days, #80 TAB Take one or two tablets by mouth, every 4 hours, as needed for pain Prov:ARMANDO FARIAS MD 03/14/19 Reported Medications Levofloxacin (LEVOFLOXACIN) 750 Mg Tablet, 1 TAB PO DAILY for uti, #7 TAB 03/11/19 Losartan Potassium (LOSARTAN POTASSIUM) 50 Mg Tablet, 50 MG PO DAILY for HYPERTENSION, TAB 02/19/19 Metoprolol Tartrate (METOPROLOL TARTRATE) 100 Mg Tablet, 100 MG PO BID for FOR BLOOD PRESSURE CONTROL, #60 TAB 0 Refills 02/19/19 Lovastatin (LOVASTATIN) 20 Mg Tablet, 20 MG PO HS for CHOLESTEROL CONTROL, TAB 02/19/19 Levothyroxine Sodium (LEVOTHYROXINE SODIUM) 175 Mcg Tablet, 175 MCG PO DAILYAC for THYROID SUPPLEMENT, #30 TAB 0 Refills 02/19/19 Paroxetine Hcl (PAROXETINE HCL) 20 Mg Tablet, 20 MG PO DAILY for DEPRESSION TREATMENT, TAB 02/19/19 Amlodipine Besylate (AMLODIPINE BESYLATE) 10 Mg Tablet, 10 MG PO DAILY for BLOOD OPRESSURE CONTROL, TAB 02/19/19 Metformin Hcl (METFORMIN HCL) 1,000 Mg Tablet, 1000 MG PO BIDWMEALS for DIABETES CONTROL, TAB 02/19/19 Aspirin (ASPIRIN) 325 Mg Tablet, 325 MG PO BID for PAIN CONTROL, TAB 02/19/19 Ferrous Sulfate (FERROUS SULFATE) 325 Mg Tablet, 325 MG PO DAILY for ANEMIA, TAB 02/19/19 Hydrocortisone (CORTIZONE 10) 28 Gm Gel..gram., 28 GM TP PRN DAILY PRN for RASH, EACH 02/19/19 ARMANDO FARIAS MD March 14, 2019 12:08
[2019-03-14 12:45] VITALS: BP 107/51
--- NOTE | 2019-03-14 15:00 | NUR ---
resting in recliner; verbally reviewed discharge instructions. states that the Dilaudid is working for her pain. Looking forward to going home.
--- NOTE | 2019-03-14 15:45 | NUR ---
Esme is dismissed to home with , belonging script. she is going home with Home health
== END 2019-03-14 15:45 | disposition home health service (06) | DRG 470 ==
LOC: OPSVCIP 06:40 → 4 SOUTHEST 14:45
PROVIDERS: ADMIT Orthopaedic Surgery; ATTEND Orthopaedic Surgery
PROC: 0SRD069 Replacement of Left Knee Joint with Oxidized Zirconium on Polyethylene Synthetic Substitute, Cemented, Open Approach (ICD-10-PCS; principal; 2019-03-11 10:00)
DX: M17.12 Unilateral primary osteoarthritis, left knee (principal); K90.9 Intestinal malabsorption, unspecified; I10 Essential (primary) hypertension; E03.9 Hypothyroidism, unspecified; E78.5 Hyperlipidemia, unspecified; E11.42 Type 2 diabetes mellitus with diabetic polyneuropathy; F41.9 Anxiety disorder, unspecified; L29.9 Pruritus, unspecified; T39.1X5A Adverse effect of 4-Aminophenol derivatives, initial encounter; T40.2X5A Adverse effect of other opioids, initial encounter; Y92.89 Other specified places as the place of occurrence of the external cause; Z98.84 Bariatric surgery status; Z79.899 Other long term (current) drug therapy; Z88.2 Allergy status to sulfonamides; Z79.4 Long term (current) use of insulin; Z68.38 Body mass index [BMI] 38.0-38.9, adult; Z88.5 Allergy status to narcotic agent
CPT/HCPCS: 36415; 73560; 81001; 82962; 85014; 85018; 85651; 86850; 86900; 86901; 87086; 88304; 88311; A7015; C1713; J0171; J0696; J1100; J1200; J1815; J1885; J2001; J2270; J2405; J2704; J2795; J3010; J3260; J3370; J3490; J7030; Q0163; 97116; 97150; 97530; 97535; C1769

== ENCOUNTER 2019-05-01 13:00 | Emergency (ER) | payer BC ==
[~2019-05-01] VITALS: Ht 154.9 cm; Wt 89.8 kg
[~2019-05-01 13:00] MED LIST changes: +HYDR2TAB31 PO; -HYDROcodone/APAP 7.5/325MG 1 TAB TABLET PO PRN; +LEVO750T5 PO; -MELOXICAM 7.5 MG TABLET PO PRN; -MORPHINE SULFATE 5 MG, KETOROLAC 30MG VIAL 30 MG, ROPIVacaine 0.5% PF 60 ML, EPINEPHrin... INT ART ONE; -TRANEXAMIC ACID 1,000 MG in IV NS 50ML -- 1ST BAG INJ ONE
--- NOTE | 2019-05-01 13:59 | RAD ---
Left lower extremity venous duplex study 05/01/2019 Clinical History: Lower extremity pain Technique: Using a combination of real time ultrasound imaging and color-flow and pulse Doppler imaging techniques, including spectral analysis, graded compression and augmentation, duplex evaluation of the deep venous system of the left lower extremity was performed. Multiple images were obtained. Findings: There is no sonographic evidence of deep venous thrombosis involving the visualized deep venous structures of the left lower extremity. Somewhat limited visualization of the distal left superficial femoral vein noted, secondary to edema. No gross evidence of thrombus is identified. Impression: No evidence of deep venous thrombosis involving the left lower extremity Electronically signed by: Nathaniel Munoz MD (05/01/2019 1:56 PM) [facility]
[2019-05-01] MEDS ORDERED: HYDROmorphone 2 MG/ML VIAL IM ONE (14:15)
--- NOTE | 2019-05-01 14:27 | PHYS DOC ---
Past Medical History Past Medical History: Anxiety, Diabetes-Type II, High Cholesterol, Hypert ension, Hypothyroid Past Surgical History: Other Additional Past Surgical Histo: hernia repair, gastric bypass, LEFT KNEE REPLACEMENT 03-01-19 Alcohol Use: Occasionally Drug Use: None Adult General Chief Complaint Chief Complaint: LOWER EXT PAIN HPI HPI Patient is a 64 year old female who presents for DVT rule out. Patient states she had total knee replacement on the left side on 03/01/2019, she states today she was concerned she had some redness on the left lower extremity and was sent to the ED to be evaluated for DVT. Patient denies any new injuries. Denies any chest pain or shortness of breath. She states she's been up and ambulating since her surgery and is doing very well. Also complaining of 4 out of 10 left knee pain which is chronic from surgery. Review of Systems Review of Systems Constitutional: Denies fever or chills [] Eyes: Denies change in visual acuity, redness, or eye pain [] HENT: Denies nasal congestion or sore throat [] Respiratory: Denies cough or shortness of breath [] Cardiovascular: No additional information not addressed in HPI [] GI: Denies abdominal pain, nausea, vomiting, bloody stools or diarrhea [] : Denies dysuria or hematuria [] Musculoskeletal: Redness to the left lower extremity, DVT rule out Integument: Denies rash or skin lesions [] Neurologic: Denies headache, focal weakness or sensory changes [] All other systems were reviewed and found to be within normal limits, except as documented in this note. Current Medications Current Medications Current Medications Medications (Trade) Dose Ordered Sig/[facility] Start Time Stop Time Status Last Admin Dose Admin Hydromorphone HCl (Dilaudid) 1 mg 1X ONCE 05/01/19 14:15 05/01/19 14:16 DC 05/01/19 13:51 1 MG Allergies Allergies Allergies Coded Allergies Type Severity Reaction Last Updated Verified ANA Inhibitors Allergy Severe SWELLING 03/11/19 Yes Sulfa (Sulfonamide Antibiotics) Allergy Intermediate RASH 03/11/19 Yes hydrocodone Adverse Reaction Intermediate Itching 03/11/19 Yes Physical Exam Physical Exam Constitutional: Well developed, well nourished, no acute distress, non-toxic appearance. [] HENT: Normocephalic, atraumatic, bilateral external ears normal, oropharynx moist, no oral exudates, nose normal. [] Eyes: PERRLA, EOMI, conjunctiva normal, no discharge. [] Neck: Normal range of motion, no tenderness, supple, no stridor. [] Cardiovascular:Heart rate regular rhythm, no murmur [] Lungs & Thorax: Bilateral breath sounds clear to auscultation [] Abdomen: Bowel sounds normal, soft, no tenderness, no masses, no pulsatile masses. [] Skin: Warm, dry, no erythema, no rash. [] Back: No tenderness, no CVA tenderness. [] Extremities: Well-healed surgical incision on the left anterior knee with no signs of infection, no warmth, no drainage. No tenderness to the left knee or left lower extremity, no calf tenderness, negative Homans sign to the left lower extremity. Trace amount of spider veins noted on the left anterior lower extremity. 2 left pedal pulse. Cap refill less than 2 seconds the left toes. Neurologic: Alert and oriented X 3, normal motor function, normal sensory function, no focal deficits noted. [] Psychologic: Affect normal, judgement normal, mood normal. [] Current Patient Data Vital Signs Vital Signs Date Time Temp Pulse Resp B/P (MAP) Pulse Ox O2 Delivery O2 Flow Rate FiO2 05/01/19 13:10 98.6 71 16 160/84 (109) 98 Room Air 98.6 EKG EKG [] Radiology/Procedures Radiology/Procedures []PROCEDURE: VENOUS LOWER EXTREMITY LEFT Left lower extremity venous duplex study 05/01/2019 Clinical History: Lower extremity pain Technique: Using a combination of real time ultrasound imaging and color-flow and pulse Doppler imaging techniques, including spectral analysis, graded compression and augmentation, duplex evaluation of the deep venous system of the left lower extremity was performed. Multiple images were obtained. Findings: There is no sonographic evidence of deep venous thrombosis involving the visualized deep venous structures of the left lower extremity. Somewhat limited visualization of the distal left superficial femoral vein noted, secondary to edema. No gross evidence of thrombus is identified. Impression: No evidence of deep venous thrombosis involving the left lower extremity Electronically signed by: Nathaniel Denson MD (05/01/2019 1:56 PM) [facility] DICTATED and SIGNED BY: NATHANIEL DENSON MD DATE: 05/01/19 4586 Course & Med Decision Making Course & Med Decision Making Pertinent Labs and Imaging studies reviewed. (See chart for details) This is a 64-year-old female patient presenting to the ED today requesting a venous Doppler for DVT rule out, patient had left knee replacement done on March 01, 2019, noted some left leg redness, the redness is not on the incision site, there is no signs of infection on the LLE. Venous Doppler of the left lower extremity was negative. Patient was reassured. Discharged to home. Encourage her to continue with her great job recovering from her knee surgery. Dragon Disclaimer Dragon Disclaimer This electronic medical record was generated, in whole or in part, using a voice recognition dictation system. Departure Departure Impression: Primary Impression: Left leg pain Disposition: HOME, SELF-CARE Condition: STABLE Referrals: EVON MANZANARES (PCP) Follow up in 1-2 week Patient Instructions: Musculoskeletal Pain Additional Instructions: We did a venous Doppler of your left lower extremity, there is no blood clot. Continue with the great job recovering from knee surgery. Follow-up with your own doctor including the orthopedic doctor in the next 1-2 weeks. Please come back to the ED at any point you have concerning symptoms. RAFI EDOUARD [employer]BLE INSTALLER SUPERVISOR May 01, 2019 14:27
[2019-05-01 14:39] VITALS: BP 152/67
== END 2019-05-01 14:39 | disposition home or self-care (01) ==
LOC: ER 13:00
DX: G89.28 Other chronic postprocedural pain (principal); M25.562 Pain in left knee; E78.00 Pure hypercholesterolemia, unspecified; E11.9 Type 2 diabetes mellitus without complications; I10 Essential (primary) hypertension; E03.9 Hypothyroidism, unspecified; Z96.652 Presence of left artificial knee joint; Z98.890 Other specified postprocedural states; Z98.84 Bariatric surgery status; Z88.2 Allergy status to sulfonamides; Z88.5 Allergy status to narcotic agent; Z88.8 Allergy status to other drugs, medicaments and biological substances
CPT/HCPCS: 93971; 96372; 99284; J1170

== ENCOUNTER → 2021-01-24 | Outpatient (CLI) | payer BC ==
[~2021-01-24] MED LIST changes: +AMLO-187 PO; -AMLO10TA8 PO
--- NOTE | 2021-01-25 10:36 | RAD ---
Examination: 1. Bilateral digital diagnostic mammogram. 2. Limited left breast ultrasound. INDICATION: 65-year-old woman with left breast mass on self exam. She is due for screening COMPARISON: Bilateral mammogram of 07/23/2014. TECHNIQUE: CC and MLO views of both breasts were obtained with 2-D technique and reviewed with comput er-aided detection. In addition, an ML view of the left breast was obtained. Targeted ultrasound of t he left breast in the patient's reported area of clinical concern as well as ultrasound of the left a xilla was performed FINDINGS: The breasts are almost entirely fatty replaced. There is no dominant mass, suspicious calcification o r architectural distortion. No mammographic correlate to the area of palpable concern as reported by the patient in the posterior upper outer quadrant left breast. Targeted ultrasound of this area at the 1:00 position 11 cm from the nipple is identified a patient r eveals a ridge of fibroglandular tissue with no dominant mass or suspicious sonographic findings. Ult rasound the left axilla showed no adenopathy. IMPRESSION: Negative bilateral mammogram and targeted left breast ultrasound. No evidence of malignancy. BI-RADS Category 1 Negative Recommend clinical management of patient's reported area of palpable concern which if clinically susp icious should be considered for biopsy. In the absence of any clinically suspicious finding, recommen d routine screening next due in one year. Patient entered into a reminder system with targeted due date for next mammogram. Electronically signed by: Herve Casiano MD (01/25/2021 10:33 AM) [id number]
== END ==
LOC: MAMMO 10:59
PROVIDERS: ATTEND Nurse Practitioner Family
DX: R92.8 Other abnormal and inconclusive findings on diagnostic imaging of breast (principal)
CPT/HCPCS: 76641; 77066

== ENCOUNTER 2022-02-01 12:23 | Emergency (ER) | payer OTHER ==
[~2022-02-01] VITALS: Ht 154.9 cm; Wt 90.4 kg
[2022-02-01 13:35] VITALS: BP 122/58
[2022-02-01] MEDS ORDERED: METH4TAB2 PO (13:44)
--- NOTE | 2022-02-01 13:45 | PHYS DOC ---
Past Medical History Past Medical History: Anxiety, Diabetes-Type II, High Cholesterol, Hypert ension, Hypothyroid Past Surgical History: Other Additional Past Surgical Histo: hernia repair, gastric bypass, LEFT KNEE REPLACEMENT 03-01-19 Smoking Status: Former Smoker Alcohol Use: Occasionally Drug Use: None General Adult EDM: Chief Complaint: SKIN PROBLEM HPI: HPI: Patient is a 66-year-old female who presents to the emergency department for skin problem. Patient reports that since the summer 2020 she has had sores that will randomly pop up on her. She reports that she has some currently on her left side of her neck and into her scalp. She reports that she will also have random papules form on her abdomen and under her left breast. She reports that they are itchy. She followed up with her primary care provider regarding this and they told her to use head and shoulders. She does have a mine shifter appointment but it is several weeks out. Patient denies any drainage to these lesions, fevers, nausea, vomiting. Patient would also like to be evaluated for left rib pain. She reports that 3 weeks ago she tripped over her house slippers and fell onto the stair railing onto her left side. She denies hitting her head or loss of consciousness, blood thinner use. She denies any pain at rest but reports with cough and deep inspiration she is having 6 out of 10 pain. Review of Systems: Review of Systems: Constitutional: See HPI Respiratory: Reports chronic cough from COPD GI: See HPI Musculoskeletal: See HPI Integument: See HPI Neurologic: See HPI Endocrine: Reports diabetes Heart Score: C/O Chest Pain: N/A Risk Factors: Risk Factors: DM, Current or recent (<one month) smoker, HTN, HLP, family history of CAD, obesity. Risk Scores: Score 0 - 3: 2.5% MACE over next 6 weeks - Discharge Home Score 4 - 6: 20.3% MACE over next 6 weeks - Admit for Clinical Observation Score 7 - 10: 72.7% MACE over next 6 weeks - Early Invasive Strategies Allergies: Allergies: Allergies Coded Allergies Type Severity Reaction Last Updated Verified ANA Inhibitors Allergy Severe SWELLING 03/11/19 Yes Sulfa (Sulfonamide Antibiotics) Allergy Intermediate RASH 03/11/19 Yes hydrocodone Adverse Reaction Intermediate Itching 03/11/19 Yes Physical Exam: PE: Constitutional: Well developed, well nourished, no acute distress, non-toxic appearance. [] HENT: Normocephalic, atraumatic, bilateral external ears normal, oropharynx moist, no oral exudates, one papule similar to other papules on skin inside right ear, nose normal. [] Eyes: PERRL, EOMI, conjunctiva normal, no discharge. [] Neck: Normal range of motion, nostridor Cardiovascular:Heart rate regular rhythm, no murmur [] Lungs & Thorax: Bilateral breath sounds clear to auscultation, ecchymosis that appears old noted to left sided ribs, no flail segments or obvious deformity [] Abdomen: Bowel sounds normal, soft, no tenderness, no masses,obese, no pulsatile masses. [] Skin: Warm, dry, scattered firm papules noted to l side of neck that are scabbed over, no drainage/fluctuance noted, no surrounding redness/warmth. Patient has one papule similar to neck on anterior abdomen and under l. breast Back: Normal range of motion Extremities: No tenderness, no cyanosis, no clubbing, ROM intact, no edema. [] Neurologic: Alert and oriented X 3, normal motor function, normal sensory function, no focal deficits noted. [] Psychologic: Affect normal, judgement normal, mood normal. [] EKG: EKG: [] Radiology/Procedures: Radiology/Procedures: [] Course & Med Decision Making: Course & Med Decision Making Pertinent Labs and Imaging studies reviewed. (See chart for details) Patient presents to the emergency department for a papular rash to her left side of her neck abdomen and under her left breast that started in the summer 2020. Patient is also reporting left rib pain after falling onto her stair rail 3 weeks ago. I offered patient a rib and chest x-ray which she declined stating that her symptoms are improving with IcyHot. Patient will be discharged home with oral steroids. She reports that she is a diabetic and I encouraged her to check her blood sugars and informed her that steroid use may increase her blood sugars. She reports that she takes steroids occasionally for COPD exacerbations. She denies any recent steroid use. She can take Benadryl for itching at home. I advised her to keep her dermatology appointment. I discussed with patient all findings and diagnostic testing as well as the need to follow-up with PCP for further evaluation and treatment or return to the ER i f any new or worsening symptoms. Strict return precautions were also discussed at length. Patient voiced understanding and agreement with the plan. Patient is hemodynamically stable at the time of disposition. Joel Disclaimer: Joel Disclaimer: This electronic medical record was generated, in whole or in part, using a voice recognition dictation system. Departure Departure Impression: Primary Impression: Contact dermatitis Qualified Codes: L25.9 - Unspecified contact dermatitis, unspecified cause Disposition: HOME / SELF CARE / HOMELESS Condition: GOOD Referrals: EVON MANZANARES (PCP) Patient Instructions: Rash, Rib Contusion Additional Instructions: You were seen in the emergency department today for rash. As we discussed, it appears that the rash is similar to a bite. Avoid itching. You are being discharged home with a steroid to take as needed. You can take Benadryl at home for the itching. You are offered a rib and chest x-ray which you declined. Please take Tylenol and ibuprofen for any rib pain. Please do not splint while you take a deep breath is that sometimes can cause pneumonia. Please follow-up with your primary care provider within a week regarding your ER visit. If your rash persists or worsens please follow-up with the mine shifter. If you develop worsening of your rash, shortness of breath, high fevers refractory to treatment, intractable nausea or vomiting, chest pain or any new or worsening concerns please return to the emergency department. Scripts Methylprednisolone (MEDROL) 4 Mg Tab.ds.pk 1 PKG PO UD, #1 PKG 0 Refills Prov: ALEJANDRO UGALDE APRN 02/01/22 ALEJANDRO UGALDE APRN Feb 01, 2022 13:45
== END 2022-02-01 13:55 | disposition home or self-care (01) ==
LOC: ER 12:23
DX: L25.9 Unspecified contact dermatitis, unspecified cause (principal); R07.81 Pleurodynia; F41.9 Anxiety disorder, unspecified; E11.9 Type 2 diabetes mellitus without complications; E78.00 Pure hypercholesterolemia, unspecified; I10 Essential (primary) hypertension; E03.9 Hypothyroidism, unspecified; Z98.84 Bariatric surgery status; Z88.8 Allergy status to other drugs, medicaments and biological substances; Z88.2 Allergy status to sulfonamides; Z88.5 Allergy status to narcotic agent
CPT/HCPCS: 99283